=== PATIENT | female | born 1950 | race Caucasian/White ===

== ENCOUNTER → 2016-06-27 | Outpatient (CLI) | payer MEDICARE, MEDICAID ==
[2016-06-27 10:12] LABS: BASOPHILS % (AUTO) 1 % (0-2); EOSINOPHILS # (AUTO) 0.5 10^3uL; EOSINOPHILS % (AUTO) 7 % (0-4); LYMPHOCYTES # (AUTO) 0.9 X10^3; MEAN CORPUSCULAR VOLUME 95 FL (80-100); MEAN PLATELET VOLUME 9.1 FL (6.0-9.5); MONOCYTES # (AUTO) 0.4 X10^3; MONOCYTES % (AUTO) 6 % (3-11); NEUTROPHILS # (AUTO) 4.7 X10^3; NEUTROPHILS % (AUTO) 72 % (51-67); PLATELET COUNT 150 10^3uL (150-450); WHITE BLOOD COUNT 6.48 10^3uL (4.0-11.0)
[2016-06-27 10:15] LABS: BILIRUBIN,URINE Negative (Negative); CLARITY,URINE Clear; COLOR,URINE Yellow; GLUCOSE, URINE (UA) Negative (Negative); LEUKOCYTE ESTERASE ,URINE Negative (Negative); UROBILINOGEN,URINE 0.2 mg/dL (0.2-1.0)
[2016-06-27 10:16] LABS: MEAN CORPUSCULAR HEMOGLOBIN 34.3 PG (26.0-34.0); MEAN CORPUSCULAR HGB CONC 36.2 g/dL (31.0-37.0)
[2016-06-27 10:33] LABS: ALBUMIN 4.3 g/dL (3.4-5.0); ANION GAP 12.3 MEQ/L (3-15); CALCULATED IONIZED CALCIUM 4.2 mg/dL (3.8-4.6); TOTAL PROTEIN 7.4 g/dL (6.4-8.5)
== END ==
LOC: LAB 09:58
PROVIDERS: ATTEND Family Medicine
DX: I10 Essential (primary) hypertension (principal); F33.1 Major depressive disorder, recurrent, moderate; M54.5 Low back pain; K59.09 Other constipation; N39.41 Urge incontinence; F41.8 Other specified anxiety disorders; J43.2 Centrilobular emphysema
CPT/HCPCS: 36415; 80053; 80061; 81003; 84443; 85025

== ENCOUNTER → 2016-07-06 | Outpatient (CLI) | payer MEDICARE, MEDICAID | LOC: RAD 09:56 | PROVIDERS: ATTEND Family Medicine | DX: M54.5 Low back pain (principal) | CPT/HCPCS: 72170 ==